=== PATIENT | male | born 1990 | race Caucasian/White ===

== ENCOUNTER 2021-09-17 02:57 | Emergency (ER) | payer SELFPAY ==
[~2021-09-17] VITALS: Ht 188 cm; Wt 108.9 kg
[~2021-09-17 02:57] MED LIST: IBUPROFEN600 MG PO
== END 2021-09-17 03:50 | disposition home or self-care (01) ==
LOC: ED 02:57
DX: S41.042A Puncture wound with foreign body of left shoulder, initial encounter (principal); F17.200 Nicotine dependence, unspecified, uncomplicated; W45.8XXA Other foreign body or object entering through skin, initial encounter
CPT/HCPCS: 90471; 90715; 99283-25

== ENCOUNTER 2023-01-23 07:34 | Emergency (ER) | payer OTHER ==
[~2023-01-23] VITALS: Ht 188 cm; Wt 121.7 kg
[2023-01-23] MEDS ORDERED: PENICILLIN V P500 MG PO (08:21)
[2023-01-23 08:26] VITALS: BP 114/85
== END 2023-01-23 08:27 | disposition home or self-care (01) ==
LOC: ED 07:34
DX: K04.7 Periapical abscess without sinus (principal); F17.200 Nicotine dependence, unspecified, uncomplicated
CPT/HCPCS: 41800; 99282-25